=== PATIENT | female | born 1975 | race Hispanic/Latino ===

== ENCOUNTER 2017-06-30 11:59 | Emergency (ER) | payer SELFPAY ==
[2017-06-30] MEDS ORDERED: Bacitracin Zinc 1 Packet ONE (12:59)
[2017-06-30] MEDS ORDERED: Adacel (T-DAP) 0.5 ML VIAL ONE (12:59)
--- NOTE | 2017-06-30 13:08 | RAD ---
THREE VIEWS OF THE RIGHT FOOT: INDICATIONS: Puncture wound on a metal door on the lateral aspect of the foot. FINDINGS: No acute fracture or subluxation is evident. A small accessory ossicle is seen adjacent to the cuboi d. Lisfranc alignment is preserved. Enthesopathic change is seen on the calcaneus. IMPRESSION: 1. No acute osseous abnormality. 2. No radiopaque foreign body demonstrated. POS: [facility]
== END 2017-06-30 13:14 | disposition home or self-care (01) ==
LOC: MADERS 11:59
DX: S91.332A Puncture wound without foreign body, left foot, initial encounter (principal); S91.311A Laceration without foreign body, right foot, initial encounter; Z23 Encounter for immunization; W25.XXXA Contact with sharp glass, initial encounter; Y92.009 Unspecified place in unspecified non-institutional (private) residence as the place of occurrence of the external cause
CPT/HCPCS: 90471; 90715

== ENCOUNTER 2017-11-23 20:03 | Emergency (ER) | payer SELFPAY ==
[2017-11-23 20:27] LABS: Bilirubin Negative (Negative); Blood, Urine Trace (Negative); Clarity Slightly Cloudy (Clear); Glucose, Urine (Dipstick) Negative (Negative); Leukocyte Small (Negative); Nitrite Negative (Negative); Protein, Urine (Dipstick) Negative (Neg-Trace); Urobilinogen 0.2 mg/dL (0.2-1.0); pH, Urine 8.5 (5.0-9.0)
[2017-11-23 20:30] LABS: Bacteria/HPF 2+ HPF (None Seen); WBC/HPF 21-50 HPF (0-3); Yeast-All Forms Rare HPF (None Seen)
[2017-11-23 20:31] LABS: Pregnancy Test - Urine (BHCG) Negative (Negative); Pregu Control Background? CLEAR/WHITE (CLR/WHITE); Pregu Control Bar Appear? YES (CONTROL BAR)
[2017-11-23] MEDS ORDERED: Ondansetron ODT 4 MG TAB ONE (21:08)
[2017-11-23] MEDS ORDERED: Lidocaine 1% 20 ML MDV ONE (21:08)
[2017-11-23] MEDS ORDERED: cefTRIAXone\\ROCEPHIN 1 GM VIAL ONE (21:08)
[2017-11-23] MEDS ORDERED: Ketorolac Tromethamine 60 MG/2 ML VIAL ONE (21:08)
== END 2017-11-23 22:04 | disposition home or self-care (01) ==
LOC: MADERS 20:03
DX: N12 Tubulo-interstitial nephritis, not specified as acute or chronic (principal)
CPT/HCPCS: 81003; 81015; 81025; 87077; 87086; 87186; 96372; J0696; J1885; J2001; Q0162

== ENCOUNTER 2019-07-08 14:21 | Emergency (ER) | payer SELFPAY ==
[2019-07-08] MEDS ORDERED: Ondansetron ODT 4 MG TAB ONE (15:14)
[2019-07-08] MEDS ORDERED: Ketorolac Tromethamine 30 MG/ML VIAL ONE (15:14)
[2019-07-08 15:56] LABS: #Basophils 0.1 thou/uL (0.0-0.2); #Eosinphils 0.1 thou/uL (0.0-0.7); #Lymphocytes 3.2 thou/uL (1.20-3.40); #Monocytes 0.6 thou/uL (0.11-0.59); %Basophils 1.5 % (0.0-1.0); %Eosinophils 1.3 % (0.0-10.0); %Lymphocytes 35.4 % (21.0-51.0); %Monocytes 6.5 % (0.0-10.0); %Neutrophils 55.3 % (42.0-75.0); Hemoglobin 6.4 g/dL (12.0-16.0); Mean Corpuscular HGB CONC 27.5 g/dL (32.0-36.0); Mean Corpuscular Hemoglobin 17.2 pg (27.0-31.0); Mean Corpuscular Volume 62.7 fL (78.0-98.0); Mean Platelet Volume 6.2 fL (7.4-10.4); Platelet Count 344 thou/uL (130-400); RBC Distribution Width 15.5 % (11.5-14.5); Red Blood Cell (RBC) Count 3.72 mill/uL (4.20-5.40)
[2019-07-08 15:57] LABS: Hypochromia MODERATE=16-30 cells (100X) (0-5/hpf); MDiff Complete? YES; Microcytosis MODERATE=15-30 cells (100X) (0-5/hpf); Polychromasia SLIGHT = 2-3 cells (100X) (0-2/hpf); Reflex for Review?? NO
[2019-07-08 16:01] LABS: ALT (SGPT) 21 U/L (8-55); AST (SGOT) 18 U/L (5-34); Albumin 3.5 g/dL (3.5-5.0); Alkaline Phosphatase 63 U/L (40-110); Anion Gap 9 mmol/L (10-20); BUN (Urea Nitrogen) 6 mg/dL (7.0-18.7); Bilirubin, Total 0.5 mg/dL (0.2-1.2); Calc. Creatinine Clearance 0 mL/min (70-130); Calcium 8.3 mg/dL (7.8-10.44); Carbon Dioxide 25 mmol/L (22-29); Chloride 105 mmol/L (98-107); Estimated GFR-MDRD 87; Globulin 3.2 g/dL (2.4-3.5); Glucose 241 mg/dL (70-105); Protein, Total 6.7 g/dL (6.0-8.3); Sodium 135 mmol/L (136-145)
[2019-07-08] MEDS ORDERED: Sodium Chloride 0.9% 1,000 ML ONE (16:43)
[2019-07-08 17:04] LABS: Bilirubin Negative (Negative); Blood, Urine Moderate (Negative); Clarity Clear (Clear); Glucose, Urine (Dipstick) 500 mg/dL (Negative); Leukocyte Negative (Negative); Nitrite Negative (Negative); Protein, Urine (Dipstick) Negative (Neg-Trace); Urobilinogen 0.2 mg/dL (Less than 2)
[2019-07-08 17:05] LABS: Pregnancy Test - Urine (BHCG) Negative (Negative); Pregu Control Background? CLEAR/WHITE (CLR/WHITE); Pregu Control Bar Appear? YES (CONTROL BAR)
[2019-07-08 17:08] LABS: Bacteria/HPF Rare-Few HPF (None Seen); Mucous/LPF Rare LPF (<2+); Squamous Epithelial 0-3 HPF (0-3); WBC/HPF 0-3 HPF (0-3)
== END 2019-07-08 17:53 | disposition short-term general hospital (02) ==
LOC: MADERS 14:21
DX: D64.9 Anemia, unspecified (principal); N93.8 Other specified abnormal uterine and vaginal bleeding; R11.2 Nausea with vomiting, unspecified
CPT/HCPCS: 36415; 80053; 81003; 81015; 81025; 85025; 96360; 96372; J1885; J7050; Q0162

== ENCOUNTER 2022-06-26 14:41 | Emergency (ER) | payer SELFPAY ==
[2022-06-26] MEDS ORDERED: Ibuprofen 800 MG TAB ONE (15:26)
[2022-06-26] MEDS ORDERED: Acetaminophen 500 MG TAB ONE (15:26)
[2022-06-26 15:33] LABS: Pregnancy Test - Urine (BHCG) Negative (Negative)
[2022-06-26 15:34] LABS: Pregu Control Background? CLEAR/WHITE (CLR/WHITE); Pregu Control Bar Appear? YES (CONTROL BAR); Specific Gravity 1.025 (1.002-1.036)
== END 2022-06-26 15:51 | disposition home or self-care (01) ==
LOC: MADERS 14:41
DX: M79.631 Pain in right forearm (principal)
CPT/HCPCS: 81025

== ENCOUNTER 2023-07-08 10:13 | Emergency (ER) | payer SELFPAY ==
[2023-07-09 13:34] LABS: SARS-CoV-2 N Gene Negative; SARS-CoV-2 S Gene Negative; SARS-CoV-2 orf1ab Negative
== END 2023-07-08 11:48 | disposition home or self-care (01) ==
LOC: MADERS 10:13
DX: U07.1 COVID-19 (principal)
CPT/HCPCS: 87635; 87804; 99283